=== PATIENT | male | born 1960 | race Caucasian/White ===

== ENCOUNTER → 2021-05-18 | Outpatient (CLI) | payer OTHER ==
--- NOTE | 2021-05-18 13:11 | XR ---
EXAMINATION TYPE: XR lumbar spine with bend/flex, 7 views DATE OF EXAM: 05/18/2021 Comparison: None Clinical History: 61-year-old male M51.16 Findings: Transitional lumbosacral segment is noted as a sacralized L5. Bilateral assimilation joints are noted . 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 Moderate degenerative disc disease above at L4-L5. The body heights are preserved. Trace grade 1 anterolisthesis at L2-L3 accentuated by only one or 2 mm o n flexion. No correction with extension. Impression: 1. Transitional lumbosacral segment with sacralized L5 demonstrating bilateral assimilation joints. 2. Moderate degenerative disc disease above at L4-L5. 3. Facet arthropathy with a trace grade 1 degenerative anterolisthesis at L2-L3. 4. This minimally accentuates by 1 to 2 mm on flexion. No correction upon extension.
== END | disposition home or self-care (01) ==
LOC: RADXRMAIN 12:13
PROVIDERS: ATTEND Neurological Surgery
DX: M47.896 Other spondylosis, lumbar region (principal); M51.36 Other intervertebral disc degeneration, lumbar region
CPT/HCPCS: 72114

== ENCOUNTER 2023-10-18 11:24 | Day surgery (SDC) | payer OTHER ==
[2023-10-16 08:50] VITALS: BMI 33.2
[~2023-10-18 11:24] MED LIST: LACTATED RINGERS 1,000 ML IV SCH
[2023-10-18 13:11] VITALS: TEMP 97.3
[2023-10-18] MEDS ORDERED: PROPOFOL 10 MG/ML 20 ML VIAL IV ONE (13:29)
--- NOTE | 2023-10-18 13:47 | P.PCN ---
Date of Procedure: 10/18/23 Procedure(s) Performed: BRIEF HISTORY: Patient is a 63-year-old pleasant white male scheduled for an elective colonoscopy as a part of screening for colon cancer PROCEDURE PERFORMED: Colonoscopy with snare polypectomy. PREOPERATIVE DIAGNOSIS: Screening for colon cancer. . IV sedation per Anesthesia. PROCEDURE: After informed consent was obtained, the patient, was brought into the endoscopy unit. IV sedation was administered by Anesthesia under continuous monitoring. Digital rectal examination was normal. Initially the Olympus CF-160 flexible video colonoscope was then inserted in the rectum, gradually advanced into the cecum without any difficulty. Careful examination was performed as the scope was gradually being withdrawn. Ileocecal valve and the appendiceal orifice were visualized and appeared normal. Prep was excellent. Mucosa of the cecum, appeared normal. Ascending colon there was a 4 mm sessile polyp that was removed by cold snare polypectomy. Rest of the ascending colon, transverse colon, descending colon, sigmoid colon, and rectum appeared normal. Retroflexion was performed in the rectum and no lesions were seen. The patient tolerated the procedure well. IMPRESSION: 4 mm ascending colon polyp status post cold snare polypectomy the polyp could not be retrieved. Rest of the colon appeared normal RECOMMENDATIONS: Findings of this examination were discussed with the patient as well as his family. He was advised to have a repeat colonoscopy in 10 years.
[2023-10-18 14:24] VITALS: BP 135/78; PULSE 55; RESP 16
== END 2023-10-18 14:30 | disposition home or self-care (01) ==
LOC: ORWHC2ENDO 11:24
PROVIDERS: ATTEND Internal Medicine Gastroenterology
DX: Z12.11 Encounter for screening for malignant neoplasm of colon (principal); K63.5 Polyp of colon; Z79.1 Long term (current) use of non-steroidal anti-inflammatories (NSAID); Z79.899 Other long term (current) drug therapy; Z96.641 Presence of right artificial hip joint
CPT/HCPCS: 45385; J2704